=== PATIENT | female | born 1990 | race American Indian/Alaskan Native ===

== ENCOUNTER 2019-06-22 08:08 | Emergency (ER) | payer SELFPAY ==
[2019-06-22 08:15] VITALS: BP 108/70
[2019-06-22] MEDS ORDERED: NACL 0.9% 1000 ML 1,000 ML IV ONE (08:26)
--- NOTE | 2019-06-22 08:27 | Emergency Department Report ---
ED Female HPI - General Chief complaint: Vaginal Bleeding Stated complaint: ABD PAIN/SPOTTING/BACK PAIN Time Seen by Provider: 06/22/19 08:20 Source: patient Mode of arrival: Ambulatory Limitations: No Limitations - History of Present Illness Initial comments: 29-year-old patient presents with bleeding that has continued since last week. Patient had a follow-up with CLINICAL LAB SPECIALIST and was told to follow-up A for same symptoms. Patient states that she is still having vaginal bleeding and still having right-sided lower pelvic cramping and pain. She denies any other symptoms. MD Complaint: vaginal bleeding -: Gradual Location: other (right pelvic) Radiation: non-radiating Severity scale (0 -10): 7 Quality: cramping, aching Consistency: constant Improves with: medication Are you Now?: Yes Associated Symptoms: headaches. denies: vaginal discharge, vaginal bleeding, nausea/vomiting - Related Data Previous Rx's Medication Instructions Recorded Last Taken Type Acetaminophen/Codeine [Tylenol 1 tab PO Q6H PRN #14 tab 06/14/19 Unknown Rx /Codeine # 3 tab] Ondansetron [Zofran Odt] 4 mg PO Q8HR PRN #14 tab.rapdis 06/14/19 Unknown Rx Allergies Allergy/AdvReac Type Severity Reaction Status Date / Time No Known Allergies Allergy Verified 06/14/19 07:35 ED Review of Systems ROS: Stated complaint: ABD PAIN/SPOTTING/BACK PAIN Other details as noted in HPI Comment: All other systems reviewed and negative ED Past Medical Hx - Past Medical History Previous Medical History?: Yes Additional medical history: dysmenorrhea - Surgical History Past Surgical History?: Yes Additional Surgical History: wisdom teeth extraction - Social History Smoking Status: Never Smoker Substance Use Type: None - Medications Home Medications: Home Medications Medication Instructions Recorded Confirmed Last Taken Type Acetaminophen/Codeine [Tylenol 1 tab PO Q6H PRN #14 tab 06/14/19 Unknown Rx /Codeine # 3 tab] Ondansetron [Zofran Odt] 4 mg PO Q8HR PRN #14 tab.rapdis 06/14/19 Unknown Rx ED Physical Exam - General Limitations: No Limitations General appearance: alert, in no apparent distress - Head Head exam: Present: atraumatic, normocephalic - Eye Eye exam: Present: normal appearance - ENT ENT exam: Present: mucous membranes moist - Neck Neck exam: Present: normal inspection - Respiratory Respiratory exam: Present: normal lung sounds bilaterally. Absent: respiratory distress - Cardiovascular Cardiovascular Exam: Present: regular rate, normal rhythm. Absent: systolic murmur, diastolic murmur, rubs, gallop - GI/Abdominal GI/Abdominal exam: Present: soft, normal bowel sounds - Extremities Exam Extremities exam: Present: normal inspection - Back Exam Back exam: Present: normal inspection - Neurological Exam Neurological exam: Present: alert, oriented X3 - Psychiatric Psychiatric exam: Present: normal affect, normal mood - Skin Skin exam: Present: warm, dry, intact, normal color. Absent: rash ED Course Vital Signs 06/22/19 08:12 Temperature 97.8 F Pulse Rate 72 Respiratory 16 Rate Blood Pressure 108/70 O2 Sat by Pulse 100 Oximetry ED Medical Decision Making - Lab Data Result diagrams: 06/22/19 08:36 06/22/19 08:36 - Radiology Data Radiology results: report reviewed, image reviewed OB ULTRASOUND LESS THAN EQUAL TO 14 WEEKS FETUS HISTORY: Right-sided pelvic pain and vaginal bleeding during TECHNIQUE: Transabdominal ultrasound with color Doppler imaging. COMPARISON: 06/14/2019. FINDINGS: The uterus is anteverted and measures 11.8 x 7.8 x 9.0 cm. An intrauterine gestational sac is identified containing a pole and yolk sac. heart rate measures 118 bpm. [place]- rump length measures 10.3 mm which correlates with a 7 week 1 day . Which A small subchorionic hemorrhage is identified along the left side of the gestational sac measuring 2.4 x 0.8 cm in axial dimensions. The right ovary measures 3.4 x 2.4 x 3.0 cm and contains a 2.1 cm simple cyst. The left ovary is unremarkable measuring 3.7 x 1.4 x 3.3 cm. No pelvic fluid collection. IMPRESSION: Viable single intrauterine as described. Small subchorionic hemorrhage. 2.1 cm right ovarian cyst. Signer Name: Alhaji Chaudhary Jr, MD Signed: 06/22/2019 9:40 AM Workstation Name: [id number] Transcribed By: TTR Dictated By: ALHAJI CHAUDHARY JR, MD Electronically Authenticated By: ALHAJI CHAUDHARY JR, MD Signed Date/Time: 06/22/19 0940 - Medical Decision Making 29-year-old female presents to ED with vaginal bleeding during ED course: Pt received ultra sound, CBC, urinalysis, test and quantitative ED All labs within normal limits, quantitative 50,000 which increased from last visit Ultrasound shows single IUP at 7 weeks with a heart rate of 118 Vital signs normalized patient is in no acute distress. I discussed with the patient if follow-up with her CLINICAL LAB SPECIALIST. I discussed all labs and ultrasound findings with the patient. Also discussed the patient as of today is progressing and to continue to rest, drink plenty of water and stay hydrated and follow-up with CLINICAL LAB SPECIALIST I discussed with the patient that he if bleeding worsens or new symptoms develop to return to ED immediately Critical care attestation.: If time is entered above; I have spent that time in minutes in the direct care of this critically ill patient, excluding procedure time. ED Disposition Clinical Impression: Vaginal bleeding during , Subchorionic hemorrhage of placenta in first trimester, Ovarian cyst Disposition: TO HOME OR SELFCARE Is pt being admited?: No Does the pt Need Aspirin: No Condition: Stable Instructions: Threatened Miscarriage (ED), Ovarian Cyst (ED) Additional Instructions: Follow-up with the CLINICAL LAB SPECIALIST as discussed. Nature U continued to have pelvic rest. No strenuous activities until further instructed by her CLINICAL LAB SPECIALIST. 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 [Provider Group] - 3-5 Days Forms: Work/School Release Form(ED) Time of Disposition: 10:49
[2019-06-22 08:51] LABS: Basophils % (Auto) 0.4 % (0.0-1.8); Eosinophils % (Auto) 0.4 % (0.0-4.3); Hematocrit 39.9 % (30.3-42.9); Hemoglobin 13.2 gm/dl (10.1-14.3); Lymphocytes # (Auto) 1.9 K/mm3 (1.2-5.4); Lymphocytes % (Auto) 33.7 % (13.4-35.0); Mean Corpuscular HGB Conc 33 % (30-34); Mean Corpuscular Volume 86 fl (79-97); Monocytes # (Auto) 0.6 K/mm3 (0.0-0.8); Platelet Count 169 K/mm3 (140-440); Red Blood Count 4.64 M/mm3 (3.65-5.03); Red Cell Distribution Width 13.5 % (13.2-15.2)
[2019-06-22 09:12] LABS: BUN/Creatinine Ratio 13; Blood Urea Nitrogen 8 mg/dL (7-17); Calcium 9.1 mg/dL (8.4-10.2); Hemolysis Index 59
--- NOTE | 2019-06-22 09:45 | Ultrasound Report ---
OB ULTRASOUND LESS THAN EQUAL TO 14 WEEKS FETUS HISTORY: Right-sided pelvic pain and vaginal bleeding during TECHNIQUE: Transabdominal ultrasound with color Doppler imaging. COMPARISON: 06/14/2019. FINDINGS: The uterus is anteverted and measures 11.8 x 7.8 x 9.0 cm. An intrauterine gestational sac is identified containing a pole and yolk sac. heart rate measures 118 bpm. [place]-rump erin gth measures 10.3 mm which correlates with a 7 week 1 day . Which A small subchorionic hemor rhage is identified along the left side of the gestational sac measuring 2.4 x 0.8 cm in axial dimens ions. The right ovary measures 3.4 x 2.4 x 3.0 cm and contains a 2.1 cm simple cyst. The left ovary is unre markable measuring 3.7 x 1.4 x 3.3 cm. No pelvic fluid collection. IMPRESSION: Viable single intrauterine as described. Small subchorionic hemorrhage. 2.1 cm right ovarian cyst. Signer Name: Alhaji Tan Jr, MD Signed: 06/22/2019 9:40 AM Workstation Name: [id number]
[2019-06-22 09:57] LABS: Bilirubin,Urine NEG (Negative); Blood,Urine MOD (Negative); Color,Urine Straw (Yellow); Mucus,Urine FEW /HPF; Protein,Urine <15 mg/dL mg/dL (Negative); Urobilinogen,Urine < 2.0 mg/dL (<2.0)
[2019-06-22] MEDS ORDERED: ZOFRAN IV ONE (10:00)
[2019-06-22] MEDS ORDERED: MORPHINE IV ONE (10:00)
== END 2019-06-22 11:31 | disposition home or self-care (01) ==
LOC: ED 08:08
DX: O46.91 Antepartum hemorrhage, unspecified, first trimester (principal); O34.81 Maternal care for other abnormalities of pelvic organs, first trimester; N83.201 Unspecified ovarian cyst, right side; Z88.5 Allergy status to narcotic agent; Z3A.14 14 weeks gestation of pregnancy
CPT/HCPCS: 36415; 76801; 80048; 81001; 84702; 85025; 96374; 96375; 99284; J2270; J2405; J7030

== ENCOUNTER 2019-06-28 22:55 | Emergency (ER) | payer SELFPAY ==
[2019-06-29 01:08] LABS: Basophils % (Auto) 0.1 % (0.0-1.8); Eosinophils % (Auto) 0.5 % (0.0-4.3); Hematocrit 42.4 % (30.3-42.9); Lymphocytes # (Auto) 2.3 K/mm3 (1.2-5.4); Lymphocytes % (Auto) 39.7 % (13.4-35.0); Mean Corpuscular HGB Conc 33 % (30-34); Mean Corpuscular Volume 87 fl (79-97); Monocytes # (Auto) 0.5 K/mm3 (0.0-0.8); Monocytes % (Auto) 9.5 % (0.0-7.3); Platelet Count 177 K/mm3 (140-440); Red Cell Distribution Width 13.8 % (13.2-15.2)
[2019-06-29 01:10] LABS: BUN/Creatinine Ratio 10; Blood Urea Nitrogen 6 mg/dL (7-17); Calcium 9.7 mg/dL (8.4-10.2); Hemolysis Index 9
[2019-06-29 01:24] LABS: Bilirubin,Urine NEG (Negative); Blood,Urine MOD (Negative); Color,Urine Yellow (Yellow); Mucus,Urine FEW /HPF; Protein,Urine <15 mg/dL mg/dL (Negative); Urobilinogen,Urine < 2.0 mg/dL (<2.0); WBC,Urine < 1.0 /HPF (0.0-6.0)
--- NOTE | 2019-06-29 01:34 | Ultrasound Report ---
ULTRASOUND OBSTETRIC Indication: Vaginal bleeding Findings: Transabdominal imaging is performed. Patient declined transvaginal imaging. There is a single, living intrauterine . [place]-rump length = 1.41 cm = 7 weeks, 5 day(s). No heartbeat is identified. The ovaries are normal. There is no free fluid. Impression: An intrauterine with calculated sonographic age of 7 weeks and 5 days is identified. No heartbeat can be identified at this time. Signer Name: Karthik Carr MD Signed: 06/29/2019 1:30 AM Workstation Name: [id number]
--- NOTE | 2019-06-29 01:49 | Emergency Department Report ---
ED Female HPI - General Chief complaint: Vaginal Bleeding Stated complaint: POSS MISCARRIAGE Time Seen by Provider: 06/29/19 01:07 Source: patient Mode of arrival: Ambulatory Limitations: No Limitations - History of Present Illness Initial comments: This 29-year-old female who was evaluated here last week. Return to the ED complaining of continuous bleeding and pelvic cramping. Patient states that she was passing small clots earlier today. Patient states she has not been able to follow up with her HAND LACER in as an appointment for July 13. Patient is received the care at [facility]. Complaint: vaginal bleeding -: Gradual Severity: moderate Quality: cramping Worsens with: none Are you Now?: Yes - Related Data Previous Rx's Medication Instructions Recorded Last Taken Type Acetaminophen/Codeine [Tylenol 1 tab PO Q6H PRN #14 tab 06/29/19 Unknown Rx /Codeine # 3 tab] Ondansetron [Zofran ODT TAB] 4 mg PO Q8HR PRN #14 tab.rapdis 06/29/19 Unknown Rx Allergies Allergy/AdvReac Type Severity Reaction Status Date / Time No Known Allergies Allergy Verified 06/14/19 07:35 ED Review of Systems ROS: Stated complaint: POSS MISCARRIAGE Other details as noted in HPI Comment: All other systems reviewed and negative ED Past Medical Hx - Past Medical History Previous Medical History?: No Additional medical history: dysmenorrhea - Surgical History Past Surgical History?: No Additional Surgical History: wisdom teeth extraction - Social History Smoking Status: Never Smoker - Medications Home Medications: Home Medications Medication Instructions Recorded Confirmed Last Taken Type Acetaminophen/Codeine [Tylenol 1 tab PO Q6H PRN #14 tab 06/29/19 Unknown Rx /Codeine # 3 tab] Ondansetron [Zofran ODT TAB] 4 mg PO Q8HR PRN #14 tab.rapdis 06/29/19 Unknown Rx ED Physical Exam - General Limitations: No Limitations General appearance: alert, in no apparent distress - Head Head exam: Present: atraumatic, normocephalic - Eye Eye exam: Present: normal appearance - ENT ENT exam: Present: mucous membranes moist - Neck Neck exam: Present: normal inspection - Respiratory Respiratory exam: Present: normal lung sounds bilaterally. Absent: respiratory distress - Cardiovascular Cardiovascular Exam: Present: regular rate, normal rhythm. Absent: systolic murmur, diastolic murmur, rubs, gallop - GI/Abdominal GI/Abdominal exam: Present: soft, normal bowel sounds - External exam: Present: normal external exam Speculum exam: Present: cervical discharge (mild mucus seen at os), vaginal bleeding, other (closed os, dark red blood in vault). Absent: laceration Bi-manual exam: Absent: cervical motion tendernes, adnexal tenderness - Extremities Exam Extremities exam: Present: normal inspection - Back Exam Back exam: Present: normal inspection - Neurological Exam Neurological exam: Present: alert, oriented X3 - Psychiatric Psychiatric exam: Present: normal affect, normal mood - Skin Skin exam: Present: warm, dry, intact, normal color. Absent: rash ED Course Vital Signs 06/28/19 06/29/19 23:11 03:31 Temperature 98.0 F Pulse Rate 71 Respiratory 20 16 Rate Blood Pressure 124/70 O2 Sat by Pulse 100 Oximetry - Reevaluation(s) Reevaluation #1: Patient is hemodynamically stable, nontender abdomen. Patient is received pain medication ED. H&H stable, no continuous bleeding cervix is closed 06/29/19 03:00 - Consultations Consultation #1: Discussed case with attending HAND LACER chief contract officer doctor for [facility] who states that patient can follow up outpatient with office in the morning. 06/29/19 02:29 ED Medical Decision Making - Lab Data Result diagrams: 06/29/19 00:27 06/29/19 00:27 Laboratory Last Values WBC 5.7 K/mm3 (4.5-11.0) 06/29/19 00:27 RBC 4.90 M/mm3 (3.65-5.03) 06/29/19 00:27 Hgb 14.0 gm/dl (10.1-14.3) 06/29/19 00:27 Hct 42.4 % (30.3-42.9) 06/29/19 00:27 MCV 87 fl (79-97) 06/29/19 00:27 MCH 29 pg (28-32) 06/29/19 00:27 MCHC 33 % (30-34) 06/29/19 00:27 RDW 13.8 % (13.2-15.2) 06/29/19 00:27 Plt Count 177 K/mm3 (140-440) 06/29/19 00:27 Lymph % (Auto) 39.7 % (13.4-35.0) H 06/29/19 00:27 [place] % (Auto) 9.5 % (0.0-7.3) H 06/29/19 00:27 Eos % (Auto) 0.5 % (0.0-4.3) 06/29/19 00:27 Baso % (Auto) 0.1 % (0.0-1.8) 06/29/19 00:27 Lymph # 2.3 K/mm3 (1.2-5.4) 06/29/19 00:27 [place] # 0.5 K/mm3 (0.0-0.8) 06/29/19 00:27 Eos # 0.0 K/mm3 (0.0-0.4) 06/29/19 00:27 Baso # 0.0 K/mm3 (0.0-0.1) 06/29/19 00:27 Seg Neutrophils % 50.2 % (40.0-70.0) 06/29/19 00:27 Seg Neutrophils # 2.9 K/mm3 (1.8-7.7) 06/29/19 00:27 Sodium 137 mmol/L (137-145) 06/29/19 00:27 Potassium 4.3 mmol/L (3.6-5.0) 06/29/19 00:27 Chloride 100.9 mmol/L (98-107) 06/29/19 00:27 Carbon Dioxide 26 mmol/L (22-30) 06/29/19 00:27 14 mmol/L 06/29/19 00:27 BUN 6 mg/dL (7-17) L 06/29/19 00:27 0.6 mg/dL (0.7-1.2) L 06/29/19 00:27 Estimated GFR > 60 ml/min 06/29/19 00:27 10 % 06/29/19 00:27 Glucose 88 mg/dL (65-100) 06/29/19 00:27 Calcium 9.7 mg/dL (8.4-10.2) 06/29/19 00:27 HCG, Quant 64964 mIU/mL (0-4) H 06/29/19 00:27 Yellow (Yellow) 06/29/19 00:46 Slightly-cloudy (Clear) 06/29/19 00:46 8.0 (5.0-7.0) H 06/29/19 00:46 Ur Specific [place] 1.017 (1.003-1.030) 06/29/19 00:46 <15 mg/dl mg/dL (Negative) 06/29/19 00:46 Neg mg/dL (Negative) 06/29/19 00:46 Neg mg/dL (Negative) 06/29/19 00:46 Mod (Negative) 06/29/19 00:46 Neg (Negative) 06/29/19 00:46 Neg (Negative) 06/29/19 00:46 < 2.0 mg/dL (<2.0) 06/29/19 00:46 Ur Leukocyte Esterase Neg (Negative) 06/29/19 00:46 < 1.0 /HPF (0.0-6.0) 06/29/19 00:46 1.0 /HPF (0.0-6.0) 06/29/19 00:46 U Epithel Cells (Auto) 2.0 /HPF (0-13.0) 06/29/19 00:46 Few /HPF 06/29/19 00:46 - Medical Decision Making 29-year-old female presents with demise. Discussed all findings with the patient. Discussed the patient Critical care attestation.: If time is entered above; I have spent that time in minutes in the direct care of this critically ill patient, excluding procedure time. ED Disposition Clinical Impression: demise, Inevitable spontaneous Disposition: DC-01 TO HOME OR SELFCARE Is pt being admited?: No Does the pt Need Aspirin: No Condition: Stable Instructions: Spontaneous Miscarriage (ED) Additional Instructions: Make sure to follow up with the primary care physician as discussed. Take all your medications as you've been prescribed. If you have any worsening symptoms or develop new symptoms please return to ED immediately. Prescriptions: Acetaminophen/Codeine [Tylenol /Codeine # 3 tab] 1 tab PO Q6H PRN #14 tab PRN Reason: Pain Ondansetron [Zofran ODT TAB] 4 mg PO Q8HR PRN #14 tab.rapdis PRN Reason: Nausea And Vomiting Referrals: PRIMARY CARE, [Primary Care Provider] - 3-5 Days [facility]Provider [facility]] - 3-5 Days Forms: Accompanied Note, Work/School Release Form(ED), Methotrexate D/C Instructions Time of Disposition: 03:06
[2019-06-29] MEDS ORDERED: TYLENOL #3 PO ONE (02:37)
[2019-06-29 07:01] VITALS: BP 128/74
== END 2019-06-29 03:40 | disposition home or self-care (01) ==
LOC: ED 22:55
DX: O03.4 Incomplete spontaneous abortion without complication (principal); O36.4XX0 Maternal care for intrauterine death, not applicable or unspecified; Z3A.00 Weeks of gestation of pregnancy not specified
CPT/HCPCS: 36415; 76801; 80048; 81001; 84702; 85025

== ENCOUNTER 2019-07-01 08:49 | Day surgery (SDC) | payer MEDICAID, OTHER ==
[2019-07-01] MEDS ORDERED: PERCOCET 5/325 PO ONE (09:22)
--- NOTE | 2019-07-01 09:23 | Emergency Department Report ---
HPI - HPI HPI: 29 YO AA FEMALE COMES TO ER TODAY WITH HEAVY VAG BLEED. REPORTS FILLING PAD IN LESS THAN [address] ALBRIGHT YESTERDAY AT [facility] IN [facility] AND GOT CYTOTEC 800 TO USE INTRAVAG. SHE DID SO LAST NIGHT. PT STATES SHE WAS OFFERED D/C OR PILL. SHE WANTED D/C BUT THEN MD SAID WE WILL TRY PILL. PT STATES SHE HAS HX PTSD AND SHE WILL COPE BETTER W THIS THE SOONER SHE CAN "DEAL WITH THIS." DR ALBRIGHT IS TO SEE HER ON FRIDAY. LMP 7-16 HOME [facility] T3 CYTOTEC INSTRUCTED NOTE PT HAS BEEN SEEN HERE, THIS IS THE 4RTH TIME FOR THIS <AUREA DENT A - Last Filed: 07/01/19 15:16> <SAMIRA SHEARER - Last Filed: 07/01/19 15:40> - General Chief Complaint: Vaginal Bleeding Time Seen by Provider: 07/01/19 09:21 ED Past Medical Hx - Past Medical History Previous Medical History?: Yes Additional medical history: dysmenorrhea. ptsd - Surgical History Past Surgical History?: Yes Additional Surgical History: wisdom teeth extraction - Family History Family history: no significant - Social History Smoking Status: Current Every Day Smoker Substance Use Type: None <AUREA DENT A - Last Filed: 07/01/19 15:16> <SAMIRA SHEARER P - Last Filed: 07/01/19 15:40> - Medications Home Medications: Home Medications Medication Instructions Recorded Confirmed Last Taken Type Acetaminophen/Codeine [Tylenol 1 tab PO Q6H PRN #14 tab 06/29/19 07/01/19 07/01/19 02:00 Rx /Codeine # 3 tab] Ondansetron [Zofran ODT TAB] 4 mg PO Q8HR PRN #14 tab.rapdis 06/29/19 07/01/19 Unknown Rx Misoprostol [Cytotec] 800 mcg VG ONCE 07/01/19 07/01/19 06/30/19 20:30 History oxyCODONE /ACETAMINOPHEN [Percocet 1 tab PO Q6HR PRN 07/01/19 07/01/19 06/30/19 History 5/325] ED Review of Systems ROS: Stated complaint: MISCARRIAGE/HEAVY BLEEDING/PAIN Other details as noted in HPI Comment: All other systems reviewed and negative <AUREA DENT A - Last Filed: 07/01/19 15:16> ROS: Stated complaint: MISCARRIAGE/HEAVY BLEEDING/PAIN Other details as noted in HPI <SAMIRA SHEARER P - Last Filed: 07/01/19 15:40> Physical Exam - Physical Exam Vital Signs: Vital Signs 07/01/19 07/01/19 08:55 09:15 Temperature 98.5 F Pulse Rate 84 Respiratory 18 19 Rate Blood Pressure 114/71 O2 Sat by Pulse 100 Oximetry Physical Exam: ALERT AND ORIENTED NO FOCAL DEF AMBULATORY S1S2 LUNGS CTA ABD TENDER OVER SUPRAPUBIC AREA OS OPEN VAG BLEEDING NOTED NO ADNEXA TENDERNESS NO CVA TENDERNESS <AUREA DENT A - Last Filed: 07/01/19 15:16> - Physical Exam Vital Signs: Vital Signs 07/01/19 07/01/19 07/01/19 08:55 09:15 09:35 Temperature 98.5 F Pulse Rate 84 Respiratory 18 19 19 Rate Blood Pressure 114/71 O2 Sat by Pulse 100 Oximetry <SAMIRA SHEARER P - Last Filed: 07/01/19 15:40> ED Course Vital Signs 07/01/19 07/01/19 08:55 09:15 Temperature 98.5 F Pulse Rate 84 Respiratory 18 19 Rate Blood Pressure 114/71 O2 Sat by Pulse 100 Oximetry <AUREA DENT A - Last Filed: 07/01/19 15:16> Vital Signs 07/01/19 07/01/19 07/01/19 08:55 09:15 09:35 Temperature 98.5 F Pulse Rate 84 Respiratory 18 19 19 Rate Blood Pressure 114/71 O2 Sat by Pulse 100 Oximetry <SAMIRA SHEARER P - Last Filed: 07/01/19 15:40> ED Medical Decision Making - Lab Data Result diagrams: 07/01/19 09:27 07/01/19 09:27 - Radiology Data Radiology results: report reviewed, image reviewed - Medical Decision Making Labs 07/01/19 07/01/19 07/01/19 09:27 09:27 09:27 WBC 6.8 RBC 4.79 Hgb 13.8 Hct 41.5 MCV 87 MCH 29 MCHC 33 RDW 13.6 Plt Count 160 Lymph % (Auto) 32.9 [place] % (Auto) 9.5 H Eos % (Auto) 0.6 Baso % (Auto) 0.4 Lymph # 2.2 [place] # 0.6 Eos # 0.0 Baso # 0.0 Seg Neutrophils % 56.6 Seg Neutrophils # 3.8 Sodium 136 L Potassium 3.6 Chloride 102.0 Carbon Dioxide 25 Anion Gap 13 BUN 6 L Creatinine 0.6 L Estimated GFR > 60 BUN/Creatinine Ratio 10 Glucose 59 L Calcium 9.8 HCG, Quant 14215 H Vital Signs 07/01/19 07/01/19 07/01/19 08:55 09:15 09:35 Temperature 98.5 F Pulse Rate 84 Respiratory 18 19 19 Rate Blood Pressure 114/71 O2 Sat by Pulse 100 Oximetry RH pos HCG TRENDING DOWN US NOTED [address] CLEMENS; POSSIBLE OR FOR D/C WILL KEEP NPO IVF GIVEN MEDICATED FOR PAIN 1220 PT UPDATED RESTING WITHOUT COMPLAINTS AT THIS TIME. 1500 PT GOING TO OR AT [address] CABAN OFFICE - Differential Diagnosis RO INCOMPLETE AB/RETAINED PRODUCT <AUREA DENT A - Last Filed: 07/01/19 15:16> - Lab Data Result diagrams: 07/01/19 09:27 07/01/19 09:27 - Medical Decision Making Attestation: Available for consultation <SAMIRA SHEARER P - Last Filed: 07/01/19 15:40> Critical care attestation.: If time is entered above; I have spent that time in minutes in the direct care of this critically ill patient, excluding procedure time. <AUREA DENT A - Last Filed: 07/01/19 15:16> Critical care attestation.: If time is entered above; I have spent that time in minutes in the direct care of this critically ill patient, excluding procedure time. <SAMIRA SHEARER P - Last Filed: 07/01/19 15:40> ED Disposition Is pt being admited?: Yes Does the pt Need Aspirin: No Time of Disposition: 12:23 <AUREA DENT A - Last Filed: 07/01/19 15:16> Is pt being admited?: Yes <SAMIRA SHEARER - Last Filed: 07/01/19 15:40> Clinical Impression: Incomplete Disposition: - OP ADMIT IP TO THIS HOSP Condition: Stable Referrals: PRIMARY CARE,MD [Primary Care Provider] - 3-5 Days
[2019-07-01 09:40] LABS: Basophils % (Auto) 0.4 % (0.0-1.8); Eosinophils % (Auto) 0.6 % (0.0-4.3); Hematocrit 41.5 % (30.3-42.9); Hemoglobin 13.8 gm/dl (10.1-14.3); Lymphocytes # (Auto) 2.2 K/mm3 (1.2-5.4); Lymphocytes % (Auto) 32.9 % (13.4-35.0); Mean Corpuscular HGB Conc 33 % (30-34); Mean Corpuscular Volume 87 fl (79-97); Monocytes # (Auto) 0.6 K/mm3 (0.0-0.8); Monocytes % (Auto) 9.5 % (0.0-7.3); Platelet Count 160 K/mm3 (140-440); Red Blood Count 4.79 M/mm3 (3.65-5.03); Red Cell Distribution Width 13.6 % (13.2-15.2)
[2019-07-01 10:03] LABS: BUN/Creatinine Ratio 10; Blood Urea Nitrogen 6 mg/dL (7-17); Calcium 9.8 mg/dL (8.4-10.2); Hemolysis Index 8
[2019-07-01] MEDS ORDERED: D50W (25GM) Syringe IV ONE (10:05)
--- NOTE | 2019-07-01 10:55 | Ultrasound Report ---
TRANSVAGINAL OB PELVIC ULTRASOUND HISTORY: Vaginal bleeding. Positive test. COMPARISON: 06/29/2019 TECHNIQUE: Routine transvaginal OB ultrasound performed. FINDINGS: Uterus: Enlarged with no intrauterine gestational sac identified. The previously identified gestatio nal sac is no longer identified. Endometrium: Thickened and echogenic. It measures 37 mm AP thickness. Right Ovary: Normal. 2.4 x 1.1 x 2.7 cm. Left Ovary: Normal. 2.6 x 1.1 x 3 cm. Additional findings: No adnexal mass or free fluid. IMPRESSION: Failed intrauterine with retained products of conception. Signer Name: Levon Morales MD Signed: 07/01/2019 10:50 AM Workstation Name: [id number]
[2019-07-01] MEDS ORDERED: D5NS 1,000 ML IV SCH (11:00)
[2019-07-01 13:01] LABS: Bilirubin,Urine NEG (Negative); Blood,Urine LG (Negative); Color,Urine Yellow (Yellow); Protein,Urine <15 mg/dL mg/dL (Negative); Urobilinogen,Urine < 2.0 mg/dL (<2.0)
[2019-07-01] MEDS ORDERED: ROCEPHIN/NS 1 GM/50 ML 1 GM/50 ML BAG IV ONE (13:29)
[2019-07-01] MEDS ORDERED: SUBLIMAZE IV PRN (16:35)
[2019-07-01] MEDS ORDERED: ZOFRAN IV PRN (16:35)
--- NOTE | 2019-07-01 16:35 | Anesthesia Day of Surgery ---
Anesthesia Day of Surgery - Day of Surgery Patient Examined: Yes Patient H&P Reviewed: Yes Patient is NPO: Yes (0900-OJ in ED for BS 52)
--- NOTE | 2019-07-01 16:37 | Anesthesia Consultation ---
Anesthesia Consult and Med Hx Date of service: 07/01/19 - Airway Anesthetic Teeth Evaluation: Good ROM Head & Neck: Adequate Mental/Hyoid Distance: Adequate Mallampati Class: Class II Intubation Access Assessment: Good - Pre-Operative Health Status ASA Pre-Surgery Classification: ASA2, Emergency Proposed Anesthetic Plan: General - Pulmonary Hx Smoking: Yes - Central Nervous System Hx Psychiatric Problems: Yes (PTSD) - Hematic Hx Sickle Cell Disease: No - Additional Comments Anesthesia Medical History Comments: NPO 0900-OJ for BS 59
[2019-07-01] MEDS ORDERED: LACTATED RINGERS 1,000 ML ONE ×2 (16:52→20:02)
[2019-07-01] MEDS ORDERED: VERSED IV NR (17:00)
[2019-07-01] MEDS ORDERED: SUBLIMAZE ONE (19:16)
[2019-07-01] MEDS ORDERED: DIPRIVAN 10 MG/ML IV ONE (19:16)
[2019-07-01] MEDS ORDERED: XYLOCAINE MPF 2% ONE (19:16)
[2019-07-01] MEDS ORDERED: NACL 0.9% IR ONE (19:55)
[2019-07-01] MEDS ORDERED: ANCEF ONE (20:02)
[2019-07-01] MEDS ORDERED: TORADOL ONE (20:05)
[2019-07-01] MEDS ORDERED: ZOFRAN ONE (20:05)
[2019-07-01] MEDS ORDERED: METHERGINE IM ONE (20:10)
--- NOTE | 2019-07-01 20:39 | Short Stay Summary ---
Short Stay Documentation Date of service: 07/01/19 Narrative H&P: Pt is a 29 year old who presents to the ED with a known missed ab. Pt was seen in [place] on yesterday and had cytotec placed to pass products, however, she presents today with heavy bleeding and cramping because she "got scared at home". - History Principal diagnosis: Missed ab Past Medical History: No medical history Past Surgical History: No surgical history Social history: single - Allergies and Medications Current Medications: Allergies No Known Allergies Allergy (Verified 06/14/19 07:35) Home Medications Medication Instructions Recorded Confirmed Last Taken Type Acetaminophen/Codeine [Tylenol 1 tab PO Q6H PRN #14 tab 06/29/19 07/01/19 07/01/19 02:00 Rx /Codeine # 3 tab] Ondansetron [Zofran ODT TAB] 4 mg PO Q8HR PRN #14 tab.rapdis 06/29/19 07/01/19 Unknown Rx Misoprostol [Cytotec] 800 mcg VG ONCE 07/01/19 07/01/19 06/30/19 20:30 History oxyCODONE /ACETAMINOPHEN [Percocet 1 tab PO Q6HR PRN 07/01/19 07/01/19 06/30/19 History 5/325] Active Medications Fentanyl (Sublimaze) 50 mcg IV Q5MIN PRN PRN Reason: Pain , Severe (7-10) Dextrose/Sodium Chloride (D5ns) 1,000 mls @ 125 mls/hr IV DIRECT SAAD Last Admin: 07/01/19 10:41 Dose: 125 mls/hr Documented by: Midazolam HCl (Versed) 2 mg IV PREOP NR Stop: 07/01/19 23:59 Last Admin: 07/01/19 17:19 Dose: 2 mg Documented by: Ondansetron HCl (Zofran) 4 mg IV ONCE PRN PRN Reason: Nausea And Vomiting - Physical exam General appearance: disheveled Lungs: Clear to auscultation Heart: Regular rate, Normal S1, Normal S2 Gastrointestinal: normal, normoactive bowel sounds Female Genitourinary: normal - Brief post op/procedure progress note Date of procedure: 07/01/19 Pre-op diagnosis: Missed Post-op diagnosis: same Procedure: D&E Anesthesia: MAC Findings: Partially passed products of conception Surgeon: ROMULO CLEMENS Estimated blood loss: 50-100ml Pathology: list (products of conception) Condition: stable - Hospital course Hospital course: unremarkable - Disposition Condition at discharge: Good Disposition: DC-01 TO HOME OR SELFCARE Short Stay Discharge Plan Activity: advance as tolerated Weight Bearing Status: Weight Bear as Tolerated Diet: regular Follow up with: PRIMARY CARE, [Primary Care Provider] - 10 Days Prescriptions: Ibuprofen [Motrin] 800 mg PO Q8HR PRN #40 tablet PRN Reason: Pain, Moderate (4-6)
[2019-07-01 21:06] VITALS: BP 117/69
--- NOTE | 2019-07-01 21:58 | Post Anesthesia Evaluation ---
- Post Anesthesia Evaluation Patient Participated: Yes Airway Patent: Yes Stable Respiratory Function: Yes Nausea/Vomiting: No Temp > 96.8F: Yes Pain Manageable: Yes Adequeate Hydration: Yes Anesthesia Complications: No Block Receding Appropriately: Not Applicable Patient on Ventilator: No
--- NOTE | 2019-07-07 09:46 | Operative Report ---
Operative Report Operative Report: Preoperative diagnoses: Incomplete Postoperative diagnosis: Same Procedure: D and E Surgeon: Cheryl Malone M.D. Anesthesia: MAC EBL: Minimal Urine output: 100 mL clear Complications: None Specimens: Products of conception Procedure: Patient was taken to the OR with IV running and in place. She was given adequate anesthesia. The patient was already asleep when the physician entered the OR. She was then placed in the dorsal lithotomy position and prepped and draped in normal sterile fashion. Attention was turned to the patient's vagina. Her bladder was then drained of approximately 100 mL of clear yellow urine. A bivalve speculum was placed the patient's vagina. Cervix was visualized and grasped with a single-tooth tenaculum. There was a large piece of tissue being actively extruded from the cervical os. This tissue was removed with the ringed forcep. The cervix was then gently dilated up to approximately 29 mm. Following this, a #11 suction curette was inserted into the patient's uterus at the level of the fundus. It was then attached to the suction machine and the curettage was performed removing products of conception. At one point the curet was removed and a large banjo curet was introduced into the uterus to further retrieve any additional products. Following this the suction curette was reintroduced and more tissue was obtained. It was excellent hemostasis noted at the end of this portion of the procedure. At this point all instruments were removed from the patient's vagina. She was then awakened and taken to recovery in stable condition. She tolerated the procedure well
== END 2019-07-01 16:09 | disposition home or self-care (01) ==
LOC: ED 08:49 → OR 16:08
PROVIDERS: ATTEND Obstetrics & Gynecology
DX: O03.4 Incomplete spontaneous abortion without complication (principal); Z79.899 Other long term (current) drug therapy; F17.210 Nicotine dependence, cigarettes, uncomplicated
CPT/HCPCS: 36415; 59812; 76801; 76830; 80048; 81001; 82962; 84702; 85025; 86850; 86900; 86901; 87086; 88305; 99284; J0690; J0696; J1885; J2210; J2250; J2405; J2590; J2704; J3010; J7042; J7120

== ENCOUNTER 2019-09-21 07:49 | Emergency (ER) | payer MEDICAID ==
--- NOTE | 2019-09-21 09:01 | Emergency Department Report ---
Vomiting/Diarrhea - HPI Chief Complaint: Headache Stated Complaint: NAUSEA/DIZZY/HEAD PAIN Time Seen by Provider: 09/21/19 08:14 Duration: 3 Days Severity: mild Nausea/Vomiting Severity: Mild Diarrhea Severity: Mild Pain Severity: Mild Symptoms: Yes Able to Tolerate Fluids, No Watery Diarrhea, No Bloody diarrhea, No Fever, No Recent Unusual Foods, No Recent Untreated Water, No Recent use of Antibiotics, No Family w/ Similar Symptoms, No Contacts w/ Similar Symptoms, No Rash, No Hematuria, No Recent URI Symptoms Other History: 29 YO WHO COMES TO ER WITH VAGUE COMPLAINTS OF BODY ACHES, HEADACHE AND NAUSEA. OFF AND ON FOR 3 DAYS. LMP 11-17. SHE LEFT WORK SHE FELT SO BAD. NO FEVER. NO CHILLS. NO COUGH. NO VAG DC OR BLEEDING. NO BACK PAIN. NO DYSURIA. PCP. IN [place]. PSH. D/C. PMH. DYSMENNORHEA. CIG. ETOH. NO DRUGS. MOM AND DAD A/W. 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 ED Review of Systems ROS: Stated complaint: NAUSEA/DIZZY/HEAD PAIN Other details as noted in HPI Comment: All other systems reviewed and negative ED Past Medical Hx - Past Medical History Previous Medical History?: Yes Hx Sickle Cell Disease: No Additional medical history: dysmenorrhea. ptsd - Surgical History Past Surgical History?: Yes Additional Surgical History: wisdom teeth extraction - Family History Family history: no significant - Social History Smoking Status: Current Every Day Smoker Substance Use Type: Alcohol - Medications Home Medications: Home Medications Medication Instructions Recorded Confirmed Last Taken Type Ondansetron [Zofran Odt] 4 mg PO Q8HR PRN #10 tab.rapdis 09/21/19 Unknown Rx Vomiting Diarrhea Exam - Exam General: Vital signs noted. No distress. Alert and acting appropriately. HEENT: Yes Moist Mucous Membranes, No Pharyngeal Erythema, No Pharyngeal Exudates, No Rhinorrhea, No Conjuctival Injection, No Frontal Tenderness, No Maxillary Tenderness Neck: No Adenopathy, No Rigidity Lungs: Yes Clear Lung Sounds, Yes Good Air Exchange, No Wheezes, No Stridor, No Cough, No Nasal Flaring, No Retractions Heart exam: Regular: Yes, Murmur: No, Tachycardia: No Abdomen: Tenderness: No, Peritoneal Signs: No, Distention: No, Hyperactive Bowel sounds: No Skin exam: Rash: No, Edema: No, Normal turgor: Yes Neurologic: Alert and oriented, no deficits. Musculoskeletal: Unremarkable. ED Course Vital Signs 09/21/19 07:56 Temperature 98.5 F Pulse Rate 100 H Respiratory 16 Rate Blood Pressure 135/79 O2 Sat by Pulse 100 Oximetry ED Medical Decision Making - Medical Decision Making Lab Results 09/21/19 Range/Units 09:01 Urine Color Yellow (Yellow) Urine Turbidity Clear (Clear) Urine pH 5.0 (5.0-7.0) Ur Specific Grubbs 1.030 (1.003-1.030) Urine Protein <15 mg/dl (Negative) mg/dL Urine Glucose (UA) Neg (Negative) mg/dL Urine Ketones Neg (Negative) mg/dL Urine Blood Neg (Negative) Urine Nitrite Neg (Negative) Urine Bilirubin Neg (Negative) Urine Urobilinogen < 2.0 (<2.0) mg/dL Ur Leukocyte Esterase Neg (Negative) Urine WBC (Auto) < 1.0 (0.0-6.0) /HPF Urine RBC (Auto) 1.0 (0.0-6.0) /HPF U Epithel Cells (Auto) 3.0 (0-13.0) /HPF Urine Mucus 3+ /HPF Urine HCG, Qual Negative (Negative) Vital Signs 09/21/19 07:56 Temperature 98.5 F Pulse Rate 100 H Respiratory 16 Rate Blood Pressure 135/79 O2 Sat by Pulse 100 Oximetry VAGUE COMPLAINTS HISTORY IRREG MENSES AND PAINFUL MENSES NEED TO RO PREG/ECTOPIC NEG PREG TEST DC HOME WITH PCP FOLLOW UP TAKING PO VSS ON DC - Differential Diagnosis RO Critical care attestation.: If time is entered above; I have spent that time in minutes in the direct care of this critically ill patient, excluding procedure time. ED Disposition Clinical Impression: Nausea Disposition: DC-01 TO HOME OR SELFCARE Is pt being admited?: No Does the pt Need Aspirin: No Condition: Stable Instructions: Acute Nausea and Vomiting (ED) Additional Instructions: STAY WELL HYDRATED FOLLOW UP WITH PCP REFERRAL BELOW MOTRIN OR TYLENOL FOR PAIN ZOFRAN FOR NAUSEA Prescriptions: Ondansetron [Zofran Odt] 4 mg PO Q8HR PRN #10 tab.rapdis PRN Reason: Vomiting Referrals: DONOVAN PALMA MD [Staff Physician] - 3-5 Days Forms: Work/School Release Form(ED) Time of Disposition: 09:55
[2019-09-21 09:26] LABS: Bilirubin,Urine NEG (Negative); Blood,Urine NEG (Negative); Color,Urine Yellow (Yellow); HCG Qualitative,Urine Negative (Negative); Mucus,Urine 3+ /HPF; Protein,Urine <15 mg/dL mg/dL (Negative); Urobilinogen,Urine < 2.0 mg/dL (<2.0); WBC,Urine < 1.0 /HPF (0.0-6.0)
[2019-09-21] MEDS ORDERED: ONDANSETRON 4 MG ODT TAB PO ONE (09:54)
[2019-09-21 10:02] VITALS: BP 99/51
== END 2019-09-21 10:14 | disposition home or self-care (01) ==
LOC: ED 07:49
DX: R11.0 Nausea (principal); R51 Headache; F17.200 Nicotine dependence, unspecified, uncomplicated; F43.10 Post-traumatic stress disorder, unspecified
CPT/HCPCS: 81001; 81025; Q0162

== ENCOUNTER 2019-12-29 05:49 | Emergency (ER) | payer SELFPAY ==
[2019-12-29 09:28] VITALS: BP 104/69
[2019-12-29 11:32] LABS: Basophils % (Auto) 0.2 % (0.0-1.8); Eosinophils % (Auto) 0.3 % (0.0-4.3); Hematocrit 39.9 % (30.3-42.9); Hemoglobin 12.9 gm/dl (10.1-14.3); Lymphocytes # (Auto) 1.9 K/mm3 (1.2-5.4); Lymphocytes % (Auto) 37.5 % (13.4-35.0); Mean Corpuscular HGB Conc 32 % (30-34); Mean Corpuscular Volume 88 fl (79-97); Monocytes # (Auto) 0.5 K/mm3 (0.0-0.8); Monocytes % (Auto) 9.8 % (0.0-7.3); Platelet Count 169 K/mm3 (140-440); Red Blood Count 4.56 M/mm3 (3.65-5.03); Red Cell Distribution Width 14.4 % (13.2-15.2)
[2019-12-29 11:47] LABS: BUN/Creatinine Ratio 12; Blood Urea Nitrogen 7 mg/dL (7-17); Calcium 9.2 mg/dL (8.4-10.2); Hemolysis Index 23
--- NOTE | 2019-12-29 11:53 | Emergency Department Report ---
ED General Adult HPI - General Chief complaint: Headache Stated complaint: SIMMONS/DIZZY CHILLS/BODYACHES Time Seen by Provider: 12/29/19 10:35 Source: patient, EMS Mode of arrival: Ambulatory Limitations: No Limitations - History of Present Illness Initial comments: Patient is a 29-year-old -[place] female who comes to the ER with a headache for 2 weeks. She has taken Tylenol at home with some relief. She reports that last night she had some dizziness. She states that the headache is on the right side of her face. She has no nausea vomiting or fever. She denies any trauma. Patient's vital signs are normal on exam. She has no underlying medical problems. She has not traveled recently and has no exposure to illness. Patient states she is not sexually active Patient is tearful on exam and looks as though she just generally does not feel well. She endorses fatigue. She endorse chills to the triage nurse but not to me. She states that her chest aches but not her arms or legs. - Related Data Previous Rx's Medication Instructions Recorded Last Taken Type Naproxen [Naprosyn] 500 mg PO BID PRN #20 tablet 12/29/19 Unknown Rx Allergies Allergy/AdvReac Type Severity Reaction Status Date / Time No Known Allergies Allergy Verified 06/14/19 07:35 ED Review of Systems ROS: Stated complaint: SIMMONS/DIZZY CHILLS/BODYACHES Other details as noted in HPI Comment: All other systems reviewed and negative ED Past Medical Hx - Past Medical History Previous Medical History?: Yes Hx Sickle Cell Disease: No Additional medical history: dysmenorrhea. ptsd - Surgical History Past Surgical History?: Yes Additional Surgical History: wisdom teeth extraction - Family History Family history: no significant - Social History Smoking Status: Current Every Day Smoker Substance Use Type: Alcohol - Medications Home Medications: Home Medications Medication Instructions Recorded Confirmed Last Taken Type Naproxen [Naprosyn] 500 mg PO BID PRN #20 tablet 12/29/19 Unknown Rx ED Physical Exam - General Limitations: No Limitations General appearance: alert, in no apparent distress - Head Head exam: Present: atraumatic, normocephalic - Eye Eye exam: Present: normal appearance - ENT ENT exam: Present: mucous membranes moist - Neck Neck exam: Present: normal inspection - Respiratory Respiratory exam: Present: normal lung sounds bilaterally. Absent: respiratory distress - Cardiovascular Cardiovascular Exam: Present: regular rate, normal rhythm. Absent: systolic murmur, diastolic murmur, rubs, gallop - GI/Abdominal GI/Abdominal exam: Present: soft, normal bowel sounds - Extremities Exam Extremities exam: Present: normal inspection - Back Exam Back exam: Present: normal inspection - Neurological Exam Neurological exam: Present: alert, oriented X3 - Psychiatric Psychiatric exam: Present: normal affect, normal mood - Skin Skin exam: Present: warm, dry, intact, normal color. Absent: rash ED Course Vital Signs 12/29/19 12/29/19 06:04 09:10 Temperature 98.5 F 98.7 F Pulse Rate 69 72 Respiratory 18 16 Rate Blood Pressure 123/70 104/69 O2 Sat by Pulse 99 99 Oximetry - Reevaluation(s) Reevaluation #1: 12/29/19 12:26 not in room ED Medical Decision Making - Lab Data Result diagrams: 12/29/19 10:55 12/29/19 10:55 - Radiology Data Radiology results: report reviewed, image reviewed - Medical Decision Making Lab Results 12/29/19 12/29/19 Range/Units 10:55 10:55 WBC 5.1 (4.5-11.0) K/mm3 RBC 4.56 (3.65-5.03) M/mm3 Hgb 12.9 (10.1-14.3) gm/dl Hct 39.9 (30.3-42.9) % MCV 88 (79-97) fl MCH 28 (28-32) pg MCHC 32 (30-34) % RDW 14.4 (13.2-15.2) % Plt Count 169 (140-440) K/mm3 Lymph % (Auto) 37.5 H (13.4-35.0) % Churchill % (Auto) 9.8 H (0.0-7.3) % Eos % (Auto) 0.3 (0.0-4.3) % Baso % (Auto) 0.2 (0.0-1.8) % Lymph # 1.9 (1.2-5.4) K/mm3 Churchill # 0.5 (0.0-0.8) K/mm3 Eos # 0.0 (0.0-0.4) K/mm3 Baso # 0.0 (0.0-0.1) K/mm3 Seg Neutrophils % 52.2 (40.0-70.0) % Seg Neutrophils # 2.7 (1.8-7.7) K/mm3 Sodium 138 (137-145) mmol/L Potassium 4.4 (3.6-5.0) mmol/L Chloride 105.7 (98-107) mmol/L Carbon Dioxide 20 L (22-30) mmol/L Anion Gap 17 mmol/L BUN 7 (7-17) mg/dL Creatinine 0.6 L (0.7-1.2) mg/dL Estimated GFR > 60 ml/min BUN/Creatinine Ratio 12 % Glucose 83 (65-100) mg/dL Calcium 9.2 (8.4-10.2) mg/dL Vital Signs 12/29/19 12/29/19 06:04 09:10 Temperature 98.5 F 98.7 F Pulse Rate 69 72 Respiratory 18 16 Rate Blood Pressure 123/70 104/69 O2 Sat by Pulse 99 99 Oximetry Patient was upset with the nurses, stating that did not come in to check on her. At that time on reexam patient was not tearful she was angry. She was raising her voice as one would not expect 1 to do had a headache. She signed a release to go to x-ray without her urine that she has yet to provide. She states that she cannot provide a urine because the nursing staff told her she did not need urine and she urinated prior to me ordering the UA. She also reports that she has not been offered anything to drink so she cannot urinate. Labs noted to be normal Patient given medication for headache. Note the patient has no history of migraines. X-ray noted to be without consolidation. Upon going to the room to talk with patient about final lab and x-ray results she was not there she was outside smoking. Patient being discharged home with PCP follow-up and prescription for naproxen. - Differential Diagnosis Rule out infectious etiology of symptoms. Critical care attestation.: If time is entered above; I have spent that time in minutes in the direct care of this critically ill patient, excluding procedure time. ED Disposition Clinical Impression: Headache Disposition: DC-01 TO HOME OR SELFCARE Is pt being admited?: No Does the pt Need Aspirin: No Condition: Stable Additional Instructions: rest hydrate well med as ordered today for headache follow up with pcp referral below ALL LABS AND XRAY TODAY ARE NORMAL Prescriptions: Naproxen [Naprosyn] 500 mg PO BID PRN #20 tablet PRN Reason: Pain Referrals: DONOVAN PALMA MD [Staff Physician] - 3-5 Days Time of Disposition: 12:24
[2019-12-29] MEDS ORDERED: HYDROcodone/ACETAMINOPHEN 5-325 MG TAB PO ONE (12:08)
--- NOTE | 2019-12-29 12:32 | XRay Report ---
CHEST 2 VIEWS INDICATION / CLINICAL INFORMATION: weakness. COMPARISON: None available. FINDINGS: SUPPORT DEVICES: None. HEART / MEDIASTINUM: No significant abnormality. LUNGS / PLEURA: No significant pulmonary or pleural abnormality. No pneumothorax. ADDITIONAL FINDINGS: No significant additional findings. IMPRESSION: 1. No acute findings. Signer Name: Prateek Angel MD Signed: 12/29/2019 12:28 PM Workstation Name: [id number]
== END 2019-12-29 12:46 | disposition home or self-care (01) ==
LOC: ED 05:49
DX: R51 Headache (principal); R42 Dizziness and giddiness; R68.83 Chills (without fever); F17.200 Nicotine dependence, unspecified, uncomplicated; Z79.899 Other long term (current) drug therapy; Z98.890 Other specified postprocedural states
CPT/HCPCS: 36415; 71046; 80048; 85025

== ENCOUNTER 2021-04-30 22:04 | Emergency (ER) | payer OTHER ==
[2021-04-30] MEDS ORDERED: KETOROLAC 30 MG/1 ML INJ IM ONE (22:28)
[2021-04-30 23:01] LABS: Bacteria,Urine 1+ /HPF (Negative); Bilirubin,Urine NEG (Negative); Blood,Urine LG (Negative); Color,Urine Yellow (Yellow); Mucus,Urine 2+ /HPF; Urobilinogen,Urine < 2.0 mg/dL (<2.0)
[2021-05-01 00:25] LABS: Hematocrit 41.9 % (30.3-42.9); Hemoglobin 13.5 gm/dl (10.1-14.3); Mean Corpuscular HGB Conc 32 % (30-34); Mean Corpuscular Volume 88 fl (79-97); Platelet Count 149 K/mm3 (140-440); Red Blood Count 4.75 M/mm3 (3.65-5.03); Red Cell Distribution Width 14.4 % (13.2-15.2)
[2021-05-01 00:51] LABS: Alanine Aminotransferase 18 units/L (7-56); Albumin 4.4 g/dL (3.9-5); Blood Urea Nitrogen 13 mg/dL (7-17); Calcium 9.3 mg/dL (8.4-10.2); Hemolysis Index 19
[2021-05-01] MEDS ORDERED: METOCLOPRAMIDE 10 MG/2 ML INJ IV STA (00:54)
[2021-05-01] MEDS ORDERED: diphenhydrAMINE 50 MG/ML VIAL IV STA (00:54)
[2021-05-01] MEDS ORDERED: SODIUM CHLORIDE 0.9% 1000 ML 1,000 ML IV ONE (00:54)
[2021-05-01] MEDS ORDERED: MORPHINE 4 MG/1 ML INJ IV STA (00:54)
[2021-05-01 00:56] LABS: BUN/Creatinine Ratio 19
--- NOTE | 2021-05-01 02:58 | Emergency Department Report ---
ED Abdominal Pain HPI - General Chief Complaint: Abdominal Pain Stated Complaint: ABD PAIN Time Seen by Provider: 05/01/21 00:54 Source: patient, EMS Mode of arrival: Wheelchair Limitations: No Limitations - History of Present Illness Initial Comments: 31-year-old -[place] female presents emerged department complaining of very painful pelvic cramping and abdominal pain associated with nausea and vomiting in a cyclic fashion which appears to be a, current issue with her menstruation. States he utilizes Percocet and Phenergan 6 suppositories at home but she is out of her medications and had a flareup of this issue. She reports no nausea no, no fever, chills, sweats, chest pain, palpitations, cephalgia. Ports no hemoptysis no hematemesis MD Complaint: abdominal pain Radiation: none Migration to: no migration Severity scale (0 -10): 4 Quality: cramping, dull Consistency: constant Improves With: nothing Worsens With: nothing Associated Symptoms: nausea, vomiting. denies: diarrhea, fever, constipation, dysuria, hematemesis, hematochezia, melena, hematuria, syncope - Related Data Previous Rx's Medication Instructions Recorded Last Taken Type Naproxen [Naprosyn] 500 mg PO BID PRN #20 tablet 12/29/19 Unknown Rx Acetaminophen/Codeine [Tylenol #3] 1 tab PO Q6H PRN #15 tab 05/01/21 Unknown Rx Metoclopramide [Reglan] 10 mg PO BID #10 tab 05/01/21 Unknown Rx diphenhydrAMINE [Benadryl CAP] 25 mg PO Q6HR #20 capsule 05/01/21 Unknown Rx Allergies Allergy/AdvReac Type Severity Reaction Status Date / Time Serotonin 5HT-3 Antagonists Allergy Shortness Verified 05/01/21 03:18 of Breath ED Review of Systems ROS: Stated complaint: ABD PAIN Other details as noted in HPI Comment: All other systems reviewed and negative ED Past Medical Hx - Past Medical History Previous Medical History?: Yes Hx Sickle Cell Disease: No Additional medical history: dysmenorrhea. ptsd - Surgical History Past Surgical History?: Yes Additional Surgical History: wisdom teeth extraction - Social History Smoking Status: Current Every Day Smoker Substance Use Type: Alcohol - Medications Home Medications: Home Medications Medication Instructions Recorded Confirmed Last Taken Type Naproxen [Naprosyn] 500 mg PO BID PRN #20 tablet 12/29/19 Unknown Rx Acetaminophen/Codeine [Tylenol #3] 1 tab PO Q6H PRN #15 tab 05/01/21 Unknown Rx Metoclopramide [Reglan] 10 mg PO BID #10 tab 05/01/21 Unknown Rx diphenhydrAMINE [Benadryl CAP] 25 mg PO Q6HR #20 capsule 05/01/21 Unknown Rx ED Physical Exam - General Limitations: No Limitations General appearance: alert, in no apparent distress - Head Head exam: Present: atraumatic, normocephalic - Eye Eye exam: Present: normal appearance, PERRL, EOMI Pupils: Present: normal accommodation - ENT ENT exam: Present: normal exam, normal orophraynx, mucous membranes moist - Neck Neck exam: Present: normal inspection - Respiratory Respiratory exam: Present: normal lung sounds bilaterally. Absent: respiratory distress - Cardiovascular Cardiovascular Exam: Present: regular rate, normal rhythm. Absent: systolic murmur, diastolic murmur, rubs, gallop - GI/Abdominal GI/Abdominal exam: Present: soft, tenderness (Tenderness noted General), normal bowel sounds, other (No Rovsing, no Roldan Baker no Meliton's) - Bi-manual exam: Absent: uterine tenderness - Extremities Exam Extremities exam: Present: normal inspection - Back Exam Back exam: Present: normal inspection. Absent: CVA tenderness (R), CVA tenderness (L) - Neurological Exam Neurological exam: Present: alert, oriented X3, CN II-XII intact, normal gait - Psychiatric Psychiatric exam: Present: normal affect, normal mood - Skin Skin exam: Present: warm, dry, intact, normal color. Absent: rash ED Course Vital Signs 04/30/21 05/01/21 05/01/21 22:20 03:10 04:28 Temperature 97.9 F 98.7 F Pulse Rate 60 61 52 L Respiratory 19 16 15 Rate Blood Pressure 121/65 Blood Pressure 129/80 [Right] O2 Sat by Pulse 97 100 99 Oximetry ED Medical Decision Making - Lab Data Result diagrams: 04/30/21 23:55 04/30/21 23:55 - Medical Decision Making This patient presents with abdominal pain of unclear etiology. Their evaluation has not identified a emergent etiology for the abdominal pain. Specifically, given the very benign exam, normal laboratory studies, and lack of significant risk factors, I have a very low suspicion for appendicitis, ischemic bowel, bowel perforation, or any other life threatening disease. I have discussed with the patient the level of uncertainty with undifferentiated abdominal pain and clearly explained the need to follow-up as noted on the discharge instructions, or return to the Emergency Department immediately if the pain worsens, develops fever, persistent and uncontrollable vomiting, or for any new symptoms or concerns. I discussed with the patient that this presentation today for abdominal pain could represent a significant risk for an acute abdominal process. Although the tests in the ED were essentially normal, there is still a possibility of a process such as appendicitis, diverticulitis, cholecystitis, ulcer, early bowel obstruction, mesenteric ischemia, kidney stone, or even kidney infection which could subsequently cause disability or . The patient understands that they must return within 24 hours for a recheck or see their physician within 24 hours for re-exam due to the possibility of significant surgical or medical process. Critical care attestation.: If time is entered above; I have spent that time in minutes in the direct care of this critically ill patient, excluding procedure time. ED Disposition Clinical Impression: Abdominal pain, Vomiting Disposition: DC-01 TO HOME OR SELFCARE Is pt being admited?: No Does the pt Need Aspirin: No Condition: Stable Instructions: Abdominal Pain, Adult, Nausea and Vomiting, Adult, [id number], Vomiting, Adult, Abdominal Pain (ED) Prescriptions: diphenhydrAMINE [Benadryl CAP] 25 mg PO Q6HR #20 capsule Metoclopramide [Reglan] 10 mg PO BID #10 tab Acetaminophen/Codeine [Tylenol #3] 1 tab PO Q6H PRN #15 tab PRN Reason: Pain Referrals: PRIMARY CARE, [Primary Care Provider] - 3-5 Days [facility] [Provider Group] - 3-5 Days
[2021-05-01] MEDS ORDERED: ONDANSETRON 4 MG/2 ML INJ ONE (03:17)
[2021-05-01] MEDS ORDERED: ONDANSETRON 4 MG/2 ML INJ IV ONE (03:18)
[2021-05-01] MEDS ORDERED: ZIPRASIDONE MESYLATE 20 MG VIAL IM STA (04:25)
[2021-05-01] MEDS ORDERED: HYOSCYAMINE SUBL 0.125 MG TAB SL ONE (04:25)
[2021-05-01 04:29] VITALS: BP 129/80
== END 2021-05-01 04:53 | disposition home or self-care (01) ==
LOC: ED 22:04
DX: R10.84 Generalized abdominal pain (principal); R11.2 Nausea with vomiting, unspecified; F17.200 Nicotine dependence, unspecified, uncomplicated; Z72.89 Other problems related to lifestyle; Z79.899 Other long term (current) drug therapy; Z88.8 Allergy status to other drugs, medicaments and biological substances
CPT/HCPCS: 36415; 80053; 81001; 85027; 96361; 96372; 96374; 96375; 99284; J1200; J1885; J2270; J2405; J2765; J3486; J7030